=== PATIENT | male | born 1990 | race Hispanic/Latino ===

== ENCOUNTER 2017-07-29 23:16 | Emergency (ER) | payer OTHER ==
[~2017-07-29] VITALS: Ht 172.7 cm; Wt 68.0 kg
--- NOTE | 2017-07-30 00:05 | ED UPPER/LOWER EXTREMITY COMPL ---
History of Present Illness General Chief Complaint: General Adult Stated Complaint: PT C/C HIP PAIN Source: patient Exam Limitations: no limitations Vital Signs & Intake/Output Vital Signs & Intake/Output Vital Signs Date Time Temp Pulse Resp B/P B/P Pulse O2 O2 Flow FiO2 Mean Ox Delivery Rate 07/30 0005 Room Air 07/29 2356 98.7 68 20 111/66 97 Room Air ED Intake and Output 07/30 0000 07/29 1200 Intake Total 0 Output Total Balance 0 Intake, Oral 0 Patient 150 lb Weight Allergies Coded Allergies: No Known Allergies (07/30/17) Triage Note: PT TO TRIAGE C.O R HIP PAIN X1 WEEK S/P HITTING IT ON AN OBJECT AT WORK, BUT PAIN HAS PROGRESSIVELY GOT WORSE. TOOK IBUPROFEN WITHOUT RELIEF. DENIES NUMBNESS/TINGLING. STATES HAD SURGERY ON SAME HIP IN 2002. Triage Nurses Notes Reviewed? yes Onset: Abrupt Duration: waxing and waning Severity: severe Severity Numbers: 7 HPI: Patient is a 27-year-old male with a past medical history of right hip fracture with surgical hardware repair performed remotely who presents emergency and that one week ago patient actually struck the right lateral aspect of his hip against a hard object resulting in pain states his pain improved however patient while working this week states that the symptoms are worsened. Patient states ambulation palpation makes worse. Denies any knee or abdominal pain. Patient has been taking ibuprofen with MILD relief of symptoms (Brian Goodson) Reconcile Medications Meloxicam (Mobic) 15 MG TABLET 1 TAB PO DAILY PRN PAIN (Gianna RICHARDSON,David) Past History Travel History Traveled to [place] past 21 day No Medical History Any Pertinent Medical History? 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 No (Brian Goodson) Review of Systems Review of Systems Constitutional: Reports: no symptoms. EENTM: Reports: no symptoms. Respiratory: Reports: no symptoms. Cardiovascular: Reports: no symptoms. Gastrointestinal/Abdominal: Reports: no symptoms. Genitourinary: Reports: no symptoms. Musculoskeletal: Reports: see HPI, joint pain. Skin: Reports: no symptoms. Neurological/Psychological: Reports: no symptoms. Hematologic/Endocrine: Reports: no symptoms. Immunological: Reports: no symptoms. All Other Systems: Reviewed and Negative (Brian Goodson) Physical Exam Physical Exam General Appearance: no apparent distress, alert, comfortable Head: atraumatic Eyes: Bilateral: normal appearance. Ears, Nose, Throat: hearing grossly normal Neck: normal inspection Cardiovascular/Respiratory: no respiratory distress Neurologic/Tendon: normal sensation, normal motor functions, normal tendon functions, responds to pain, no evidence tendon injury, no pulse deficit Skin: intact, normal color, warm/dry Comments: Right hip normal inspection right lateral trochanteric point tenderness straight leg raise able to be performed Right knee normal inspection nontender (Brian Goodson) Progress Differential Diagnosis: arterial insufficiency, compartment syndrome, contusion, dislocation, DVT, fracture, gout, septic arthritis, sprain, tendon injury Plan of Care: No concerns of tendon deficit x-rays resulted no concerns of osseous injury Discussed results of x-ray with patient Diagnostic Imaging: Viewed by Me: Radiology Read. Radiology Impression: no acute abnormality, no fracture Comments: PATIENT: ISAIAH LIN PRESENT AGE: 27 PATIENT ACCOUNT NO: [id number] : 91 LOCATION: [facility] ORDERING PHYSICIAN: Brian MELO SERVICE DATE: 07/30/17 EXAM TYPE: RAD - XRY-HIP 2-3 VIEWS, RIGHT EXAMINATION: XR HIP, RIGHT CLINICAL INFORMATION: Right hip pain COMPARISON: None TECHNIQUE: Two views of the right hip. FINDINGS: There is a cannulated screw within the right femoral neck. The hardware is intact. The appearance of a healed femoral neck fracture. No acute fracture or dislocation. The femoral head is well-seated within its acetabulum. The visualized right hemipelvis is intact. The bowel gas pattern is unremarkable. IMPRESSION: No acute osseous abnormality. Intact hardware within the right femoral neck. Healed right femoral neck fracture. DICTATED BY: Caro RICHARDSON,Lorne DATE/TIME DICTATED:07/30/1734 ANALYTICAL SCIENTIST:GAYATRI DATE/TIME TRANSCRIBED:07/30/1734 (Brian Goodson) Departure Departure Disposition: HOME OR SELF CARE Condition: Stable Clinical Impression Primary Impression: Contusion of right hip Referrals: Patient Has No Primary Care Dr (PCP/Family) Additional Instructions: As discussed begin icing the area directly 20 minutes every 2 hours begin the prescription of meloxicam for pain and inflammation begin using the crutches until YOU can walk without pain. If no better in 5 days follow-up with your orthopedic doctor please provide him with x-rays provided to YOU IN the emergency room. Prescriptions waiting at [facility] Departure Forms: Customer Survey General Discharge Information Prescriptions: Current Visit Scripts Meloxicam (Mobic) 1 TAB PO DAILY PRN PAIN #10 TAB (Brian Goodson) PA/INSTRUCTOR [employer] Co-Sign Statement Statement: ED Attending supervision documentation- I saw and evaluated the patient. I have also reviewed all the pertinent lab results and diagnostic results. I agree with the findings and the plan of care as documented in the PA's/INSTRUCTOR [employer]I's documentation. x I have reviewed the ED Record and agree with the PA's/INSTRUCTOR [employer]'s documentation. [] Additions or exceptions (if any) to the PAs/INSTRUCTOR [employer]LEY [employer]I's note and plan are summarized below: [] (Gianna RICHARDSON,David)
--- NOTE | 2017-07-30 00:41 | RADIOLOGY REPORT ---
EXAMINATION: XR HIP, RIGHT CLINICAL INFORMATION: Right hip pain COMPARISON: None TECHNIQUE: Two views of the right hip. FINDINGS: There is a cannulated screw within the right femoral neck. The hardware is intact. The appearance of a healed femoral neck fracture. No acute fracture or dislocation. The femoral head is well-seated within its acetabulum. The visualized right hemipelvis is intact. The bowel gas pattern is unremarkable. IMPRESSION: No acute osseous abnormality. Intact hardware within the right femoral neck. Healed right femoral neck fracture.
[2017-07-30] MEDS ORDERED: MOBIC15 M1 PO (00:53)
[2017-07-30 01:01] VITALS: BP 113/71
== END 2017-07-30 01:03 ==
LOC: ERH 23:16
DX: S70.01XA Contusion of right hip, initial encounter (principal); W22.8XXA Striking against or struck by other objects, initial encounter; Y92.9 Unspecified place or not applicable; Y93.9 Activity, unspecified
CPT/HCPCS: 73502-RT